=== PATIENT | female | born 1970 | race Caucasian/White ===

== ENCOUNTER 2017-07-30 08:31 | Observation (INO) | payer BC ==
[~2017-07-30] VITALS: Ht 162.6 cm; Wt 94.8 kg
[2017-07-30] MEDS ORDERED: ceFAZolin 1,000 MG/NS 100 ML IV SCH ×2 (09:15)
[2017-07-30] MEDS ORDERED: OMEP20TA93 PO (09:45)
[2017-07-30] MEDS ORDERED: CHLORHEXIDINE GLUCONATE 2 % 1 PACK (2 CLOTHS) TOPICAL PRN (09:45)
[2017-07-30] MEDS ORDERED: SODIUM CHLORID 0.9% 500 ML IV PRN (09:45)
[2017-07-30] MEDS ORDERED: POVIDONE IODINE 5% (ANTISEPSIS KIT) 4 APPLICATIONS EACH NARE PRN (09:45)
[2017-07-30] MEDS ORDERED: METOPROLOL TARTRATE 25 MG TAB PO PRN (09:45)
[2017-07-30] MEDS ORDERED: MONT10TA4 PO (09:45)
[2017-07-30] MEDS ORDERED: BUPR300T PO (09:45)
[2017-07-30] MEDS: LACTATED RINGER'S 1000 ML IV PRN (09:50)
[2017-07-30 10:03] LABS: HEMATOCRIT 34.7 % (35.0-46.0); HEMOGLOBIN 12.2 GM/DL (11.6-15.3); MEAN CORPUSCULAR HEMOGLOBIN 31.7 PG (27.0-34.0); MEAN CORPUSCULAR HGB CONC 35.2 % (32.0-36.0); MEAN PLATELET VOLUME 9.2 FL (7.0-11.0); PLATELET COUNT 197 TH/MM3 (150-450); RED BLOOD COUNT 3.86 MIL/MM3 (4.00-5.30); RED CELL DISTRIBUTION WIDTH 12.3 % (11.6-17.2); WHITE BLOOD COUNT 4.7 TH/MM3 (4.0-11.0)
[2017-07-30] MEDS ORDERED: MIDAZOLAM HCL 2 MG/2 ML VIAL ONE (10:31)
[2017-07-30] MEDS ORDERED: DEXAMETHASONE SOD PHOS 4 MG/ML VIAL ONE (10:32)
[2017-07-30] MEDS ORDERED: BUPIVACAINE/EPINEPHRINE 0.5% PF 10 ML VIAL ONE (12:17)
[2017-07-30] MEDS ORDERED: MEPERIDINE HCL 25 MG/ML VIAL ONE (13:31)
[2017-07-30] MEDS ORDERED: MORPHINE SULFATE 4 MG/ML INJ ONE ×2 (13:41→14:11)
[2017-07-30] MEDS ORDERED: HYDROmorphone HCL PF 0.5 MG/0.5 ML SYRINGE ONE ×4 (14:16→14:40)
[2017-07-30] MEDS ORDERED: LORazepam 2 MG/ML VIAL ONE (15:03)
[2017-07-30] MEDS ORDERED: ONDANSETRON HCL 4 MG/2 ML VIAL ONE (15:55)
[2017-07-30] MEDS: LACTATED RINGER'S 1000 ML INJ 1,000 ML IV SCH (16:01)
[2017-07-30] MEDS ORDERED: ONDANSETRON HCL 4 MG/2 ML VIAL IVP PRN (16:15)
[2017-07-30] MEDS ORDERED: NALOXONE HCL 0.4 MG/ML AMP IV PUSH PRN ×3 (16:15→17:15)
[2017-07-30] MEDS ORDERED: HYDROmorphone HCL PCA 6 MG/30 ML IV SCH (16:15)
[2017-07-30] MEDS ORDERED: PCA - TOTAL MG DILAUDID DELIVERED PER SHIFT OTHER SCH (16:15)
[2017-07-30] MEDS ORDERED: LORazepam 0.5 MG TAB PO PRN (16:15)
[2017-07-30] MEDS ORDERED: diphenhydrAMINE HCL 25 MG CAP PO PRN (16:15)
[2017-07-30] MEDS: DOCUSATE SODIUM 100 MG CAP PO SCH (16:15)
[2017-07-30] MEDS ORDERED: KETOROLAC TROMETHAMINE 30 MG/ML (IVP) VIAL IVP PRN (16:15)
[2017-07-30] MEDS ORDERED: PCA - TOTAL MG MORPHINE DELIVERED PER SHIFT SCH (16:30)
[2017-07-30] MEDS ORDERED: MORPHINE SULFATE 30 MG/30 ML PCA ONE (16:51)
[2017-07-30] MEDS: buPROPion HCL 150 MG SUSTAINED RELEASE TAB PO SCH ×2 (17:00→22:53)
[2017-07-30] MEDS ORDERED: PROMETHAZINE INJ 25 MG/ML VIAL IM PRN (17:15)
[2017-07-30] MEDS ORDERED: MORPHINE SULFATE 30 MG/30 ML PCA IV SCH (17:15)
[2017-07-30] MEDS ORDERED: oxyCODONE/ACETAMINOPHEN 5 MG/325 MG TAB PO PRN (17:15)
[2017-07-30 17:17] VITALS: BP 106/62; PULSE 89; RESP 20; TEMP 97; O2SAT 95
[2017-07-30] MEDS ORDERED: KETOROLAC TROMETHAMINE 30 MG/ML (IVP) VIAL IV PUSH PRN (17:30)
[2017-07-30 18:13] VITALS: RESP 18
[2017-07-30] MEDS ORDERED: DIATRIZOATE MEGLUM/DIATRIZOATE SOD 9 ML CUP PO ONE (19:45)
[2017-07-30 20:18] VITALS: BP 117/71; PULSE 97; RESP 20; TEMP 97.3; O2SAT 94
[2017-07-30 20:25] VITALS: BP 117/71; PULSE 97; RESP 20; TEMP 97.3; O2SAT 94
[2017-07-30 20:25] LABS: CREATININE 0.75 MG/DL (0.50-1.00)
[2017-07-30] MEDS ORDERED: LORazepam 2 MG/ML VIAL IV ONE (21:45)
[2017-07-30 22:00] VITALS: RESP 16
[2017-07-30] MEDS: PCA - TOTAL MG MORPHINE DELIVERED PER SHIFT SCH (22:00)
[2017-07-30] MEDS ORDERED: IOHEXOL 350 MG/ML 10 ML VIAL (for RAD DIAG) IVCONTRAST ONE (22:48)
--- NOTE | 2017-07-30 22:57 | RADRPT ---
EXAM DATE: 07/30/2017 10:44 PM EDT AGE/SEX: 47 years / Female INDICATIONS: Acute left lower quadrant abdomen pain status post tubal ligation today. CLINICAL DATA: This is the patient's initial encounter. Patient reports that signs and symptoms have been present for 1 day and indicates a pain score of 8/10. MEDICAL/SURGICAL HISTORY: Gastroesophageal reflux disease. Ulcers. Cholecystectomy. Tubal lig ation. ORAL CONTRAST: Prescribed oral contrast ingested. RADIATION DOSE: 7.55 CTDI (mGy) COMPARISON: No prior [facility] exams available for comparison. TECHNIQUE: Multiple contiguous axial images were obtained through the abdomen and pelvis following b olus infusion of 100 ml Omnipaque 350 (iohexol) nonionic water-soluble contrast as a single exam do se. Prescribed oral contrast ingested. Using automated exposure control and adjustment of the mA and /or kV according to patient size, the radiation dose was kept as low as reasonably achievable to obta in optimal diagnostic quality images. FINDINGS: LOWER LUNGS: The visualized lower lungs are clear. LIVER: The liver has a homogeneous density without space-occupying lesion. Gallbladder is surgically absent. Common bile duct is slightly prominent likely due to reservoir effect. SPLEEN: Homogeneous density without enlargement. PANCREAS: Unremarkable without mass or calcification. KIDNEYS: Punctate 2 mm calcified calyceal calculus in the anterior inferior right renal pole. Kidney s demonstrate symmetrical enhancement without hydronephrosis. ADRENAL GLANDS: Unremarkable. AORTA: Hortnecia-aneurysmal. BOWEL/MESENTERY: Small amount of free air which is likely postsurgical. Moderately distended stomach . Trace free fluid in the pelvis. No significantly dilated loops of bowel. ABDOMINAL WALL: Midline soft tissue subcutaneous air, likely postsurgical. RETROPERITONEUM: No evidence of adenopathy in the retrocrural, para-aortic, or deep pelvic regions. BLADDER: Moderately distended but otherwise unremarkable. REPRODUCTIVE: Prominent endometrium measuring up to 3.8 cm. Probable 3.3 cm right ovarian cyst. No f ocal drainable fluid collections. BONY STRUCTURES: Unremarkable. CONCLUSION: 1. Small amount of pneumoperitoneum, likely postsurgical. 2. Moderately distended stomach. 3. Prominent endometrium measuring up to 3.8 cm. Clinical correlation is recommended. Further evalua tion may be performed with pelvic ultrasound as clinically warranted. 4. Punctate 2 mm calcified calyceal calculus in the inferior pole of the right kidney without hydron ephrosis. 5. Trace free fluid in the pelvis. Electronically signed by: Ifeanyi Escobedo MD 07/30/2017 10:56 PM EDT
[2017-07-31 00:47] VITALS: BP 99/69; PULSE 80; RESP 20; TEMP 96.6; O2SAT 96
[2017-07-31] MEDS ORDERED: LIDOCAINE HCL 5% PATCH T-DERMAL ONE (02:15)
[2017-07-31] MEDS: LACTATED RINGER'S 1000 ML INJ 1,000 ML IV SCH ×2 (02:46→08:01)
[2017-07-31] MEDS: DOCUSATE SODIUM 100 MG CAP PO SCH (04:51)
[2017-07-31] MEDS: PCA - TOTAL MG MORPHINE DELIVERED PER SHIFT SCH (06:00)
[2017-07-31] MEDS ORDERED: MONTELUKAST SODIUM 10 MG TAB PO ONE (08:00)
[2017-07-31] MEDS: LACTATED RINGER'S 1000 ML IV PRN (08:01)
[2017-07-31 08:28] VITALS: BP 114/63; PULSE 86; RESP 15; TEMP 98; O2SAT 98
[2017-07-31] MEDS ORDERED: INFLUENZA VIRUS VACCINE (QUADRIVALENT) 0.5 ML SYR IM ONE (10:00)
--- NOTE | 2017-07-31 13:19 | HHI.DS ---
Discharge Summary Admission Date July 30, 2017 at 17:08 Admitting Diagnosis Brief History 47 y/o presented for outpatient surgery. She has an early Missed ( empty sac) noted in the office by ultrasound. Because she already has two special needs children and does not want any future pregancy, she also requested tubal ligation. Her surgery was uncomplicated until she developed LLQ pain in recovery room and trembling, neither of which responded well to usual post-op measures. She did seem to shake less after Ativan administration. She was observed overnight with a Dilaudid TRAFFIC CONTROL OPERATOR pump. CT of abdomen and pelvis was normal for post-op. Since a local injection of 1% Xylocaine x 3cc was injected in the abdominal wall along the area enervated by the ilioinguinal nerve did seem to relieve some of the pain, Lidoderm patch is ordered which did provide some relief. Overnight the patient had some improvement of pain but also responded well to the Ativan prior to the CT exam. She requests discharge home with Rx for Ativan and meperidine, which is ordered through our office EMR. CBC/BMP: 07/30/17 0958 07/30/17 1855 Significant Findings Laboratory Tests Test 07/30/17 09:58 07/30/17 18:55 Red Blood Count 3.86 MIL/MM3 (4.00-5.30) Hematocrit 34.7 % (35.0-46.0) Estimat Glomerular Filtration Rate 84 ML/MIN (>89) Pt Condition on Discharge: Good Discharge Disposition: Discharge Home Discharge Instructions DIET: Follow Instructions for: As Tolerated, No Restrictions Additional Diet Instructions: resume previous diet but start with a ligjt diet today Activities you can perform: See Additionl Instruction Activities to avoid: Driving for 24 hrs, Lifting/Bending, Prolonged Standing, Strenuous Activity, Bathing, Sexual Activity Additional Activity Instructio: rest today Additional Information Patient is already scheduled for a follow up in 7 days. She knows how to reach me if she has problems. Sharda Mack MD July 31, 2017 13:19
--- NOTE | 2017-09-01 13:42 | PD.OP ---
Juliet Prado DO Operative Report Date of Surgery: July 30, 2017 Preoperative Diagnosis: (1) Missed (2) Encounter for female sterilization procedure Postoperative Diagnosis: (1) Missed (2) Encounter for female sterilization procedure Procedure: Dilation and suction curettage Laparoscopic application of Falope rings (female sterilization) Anesthesia: GET Surgeon: Sharda Mack Vp & General Counsel(s): see [facility] Resident Surgeon: n/a Operation and Findings: Indications: This 47 y/o was found to have a missed by ultrasound. Outpatient misoprostol did not work to induce the miscarriage, despite repeating the medication. She requests suction D&C. The patient and her also decided to add female sterilization after careful consideration of their options for contraception. Findings: The pelvis was normal to laparoscopic view. The products of conception were consistent with ultrasound findings. Procedure: The patient was taken to the operating room and had induction of general anesthesia with intubation. She was then positioned in dorsolithotomy position and prepped. An open-sided spaculum was placed and the cervix was grasped with a ring forcep. It dalated easily to accept a #8 suction cannula. This was guided to the fundus with bimanual guidance, and withdrawn in a rotary motion with suction applied. This was done 4 times with no products of conception returned on the last 2 passes. The ZendyPlacelka uterine manipulator was placed, the speculum removed, and I regloved. Then a 8 mm incision was made in the umbilicus and a veress needle was used to instill 2.5 liters of CO2. The trochar was placed without incident. Using the Falope ring device, the midportion of the right Fallopian tube was grasped in the mid-portion and the ring applied. Complete transection of the tube was accomplished with the isolated segment of tube blanched. The same procedure was done on the other side. The procedure being complete, all instruments were removed from the abdomen and vagina, and the incision was closed subcuticularly with 4-0 Monocryl , and Dermabond was used to seal the incision. The patient was awakened and taken to the recovery room breathing on her own. Sponge, needle and instrument counts were correct. Sharda Mack MD Sep 01, 2017 13:42
== END 2017-07-31 11:50 | disposition home or self-care (01) ==
LOC: PHSDC 08:31 → PH3A 17:08
PROVIDERS: ADMIT Obstetrics & Gynecology; ATTEND Obstetrics & Gynecology
DX: Z30.2 Encounter for sterilization (principal); O02.1 Missed abortion; J45.909 Unspecified asthma, uncomplicated
CPT/HCPCS: 00851; 36415; 58671; 59820; 74177; 82565; 85027; 88305; 96374; 96375; G0378; J0690; J1100; J1170; J2060; J2175; J2250; J2270; J2405; J3010; J7120; Q9963; Q9967